=== PATIENT | female | born 2000 | race Two or more races ===

== ENCOUNTER 2025-03-29 08:22 | Emergency (ER) | payer OTHER ==
[~2025-03-29] VITALS: Ht 160 cm; Wt 70.8 kg
[2025-03-29] MEDS ORDERED: FAMOTIDINE/PF 20 MG/2 ML VIAL ONE (09:30)
[2025-03-29] MEDS ORDERED: 0.9 % SODIUM CHLORIDE 1,000 ML IV ONE (09:30)
[2025-03-29] MEDS ORDERED: FAMOtidine 10 MG/ML (4ML VIAL) IV PUSH ONE (09:30)
[2025-03-29] MEDS ORDERED: ONDANSETRON HCL 2 MG/ML VIAL IV ONE (09:30)
[2025-03-29] MEDS ORDERED: ONDANSETRON HCL 2 MG/ML VIAL ONE (09:30)
[2025-03-29 09:59] LABS: BASO % 0.8 % (0.1-1.2); EOS # 0.12 (0.04-0.54); EOS % 1.5 % (0.7-7.0); LYMPH # 1.85 (1.18-3.74); LYMPH % 23.1 % (19.3-53.1); MEAN PLATELET VOLUME 9.80 fl (9.4-12.4); MONO # 0.61 (0.24-0.82); MONO % 7.6 % (4.7-12.5); NEUT # 5.32 (1.56-6.13); NEUT % 66.5 % (34.0-71.1); RED CELL DISTRIBUTION WIDTH 11.9 % (11.6-14.4)
[2025-03-29 10:20] LABS: URINE APPEARANCE Clear; URINE BILIRRUBIN Negative (NEGATIVE); URINE BLOOD Negative; URINE COLOR Yellow; URINE GLUCOSE Negative (NEGATIVE); URINE KETONE Negative (NEGATIVE); URINE LEUKOCYTE Small; URINE NITRATE Negative; URINE PROTEIN Negative (NEGATIVE); URINE UROBILINOGEN 1.0 E.U./dl
[2025-03-29 10:20] LABS: INR 1.07
[2025-03-29 10:30] LABS: ALT/SGPT 18 U/L (12-78); AST/SGOT 14 U/L (15-37); BILIRUBIN TOTAL 0.39 mg/dL (0.3-1.2); BUN CREA RATIO 23 (7.0-25.0); CREATININE SERUM 0.44 mg/dL (0.55-1.02); GFR 172.85; GLOBULINA 4.3 G/DL (2.4-3.5); GLUCOSE FASTING 99 mg/dL (65-100); OSMOLALITY SERUM 278 MOSM/KG (275-295)
[2025-03-29 10:32] LABS: HCG QUANTITATIVE < 1 mUI/mL (1-3)
[2025-03-29 10:33] LABS: URINE BACTERIA 1450.7 uL (0.0-1933); URINE EPITHELIAL CELLS 70.9 uL (0.0-38.8); URINE RBC 6.0 uL (0.0-20.8); URINE WBC 57.3 uL (0.0-23.2)
[2025-03-29 10:39] LABS: URINE CAST 0.00 uL (0.0-1.40)
[2025-03-29] MEDS ORDERED: PEPCID AC20 MG PO (12:00)
[2025-03-29] MEDS ORDERED: BACTRIM DS TAB1 EACH PO (12:00)
[2025-03-29] MEDS ORDERED: PROBIOTIC1 EAC2 PO (12:00)
== END 2025-03-29 12:07 | disposition home or self-care (01) ==
LOC: ER 08:23
PROVIDERS: General Practice
DX: R10.31 Right lower quadrant pain (principal); N39.0 Urinary tract infection, site not specified; I88.0 Nonspecific mesenteric lymphadenitis